=== PATIENT | female | born 1985 | race Caucasian/White ===

== ENCOUNTER 2019-06-22 12:04 | Outpatient (RCR) | payer OTHER, SELFPAY ==
--- NOTE | ~2019-06-22 | US_ITS ---
EXAMINATION: US OB BPP wo non-stress DATE: 06/22/2019 13:15 INDICATION: Decreased movement. Third trimester. TECHNIQUE: Real-time pelvic ultrasound was performed. COMPARISON: None. FINDINGS: There is a single living fetus in vertex presentation. The placenta is posterior. heart rate i s 165 beats per minute (bpm). The amniotic fluid index is 12.8 cm, which is normal. Biophysical profile performed by the technologist: breathing (30 sec sustained breathing in 30 minutes): 2 out of 2 movement (3 gross body movements in 30 minutes): 2 out of 2 tone (one episode of vjjnwrk-[id number]-znhqqcs limb movement): 2 out of 2 Amniotic fluid pocket (2 cm): 2 out of 2 Total score: 8 out of 8 IMPRESSION: 1. Single living fetus in vertex presentation. 2. Biophysical profile 8 out of 8. Reviewed, dictated and finalized at location A. [facility]
[2019-06-22 14:34] VITALS: BP 92/50; PULSE 68
== END 2019-09-14 07:53 | disposition home or self-care (01) ==
LOC: ANHOBOP 12:04
PROVIDERS: PCP Obstetrics & Gynecology; Visit Provider Obstetrics & Gynecology
DX: O36.8130 Decreased fetal movements, third trimester, not applicable or unspecified (principal); Z3A.37 37 weeks gestation of pregnancy
CPT/HCPCS: 59025; 76819